=== PATIENT | female | born 1980 | race Caucasian/White ===

== ENCOUNTER → 2019-03-20 | Outpatient (REF) | payer BC, OTHER ==
[~2019-03-20] MED LIST: IBUP1TAB7 PO; MAPA500T2 PO; PERC5TAB12 PO; PRENTAB7 PO
== END ==
LOC: M LAB REF 13:25
PROVIDERS: ATTEND Advanced Practice Midwife
DX: Z12.4 Encounter for screening for malignant neoplasm of cervix (principal)
CPT/HCPCS: 87624; G0123

== ENCOUNTER → 2019-03-23 | Outpatient (CLI) | payer BC ==
--- NOTE | 2019-03-23 15:43 | REP ---
Clinical: Amenorrhea . Technique: Transabdominal pelvic ultrasound followed by transvaginal examination for better evaluation of the endometrium and adnexa. Findings: Bladder is unremarkable and measures 6.7 x 5.5 x 6.7 cm . Normal anteverted uterus measures 6.2 x 3.5 x 4.3 cm . The endometrial complex measures 8.0 mm thickness. No discrete uterine or endometrial abnormalities are appreciated. Bilateral ovaries are normal in appearance. Right ovary measures 2.5 x 2.2 x 2.7 cm ; Left ovary measures 3.4 x 2.0 x 2.5 cm. No pelvic fluid or adnexal mass lesion. Impression: 1. Normal pelvic ultrasound Electronically Signed by Red Mckeon MD 03/23/2019 03:35 P
== END ==
LOC: M RAD 15:03
PROVIDERS: ATTEND Advanced Practice Midwife
DX: N91.1 Secondary amenorrhea (principal)

== ENCOUNTER → 2019-04-04 | Outpatient (CLI) | payer BC ==
[~2019-04-04] MED LIST changes: +CIPR-249 PO; +FLAG500T PO; +ONDA4TAB6 PO
[2019-04-04 08:51] LABS: HEMOGLOBIN 13.4 g/dl (12.0-15.5); MEAN CORPUSCULAR HEMOGLOBIN 28.1 pg (27.0-33.0); MEAN CORPUSCULAR HGB CONC 31.2 g/dl (32.0-36.5); MEAN CORPUSCULAR VOLUME 90.1 fl (80.0-96.0); PLATELET COUNT, AUTOMATED 332 10^3/uL (150-450); RED BLOOD COUNT 4.77 10^6/uL (4.00-5.40); WHITE BLOOD COUNT 7.1 10^3/uL (4.0-10.0)
[2019-04-04 09:20] LABS: FREE T4 0.65 NG/DL (0.76-1.46); THYROID STIMULATING HORMONE 1.55 uIU/ML (0.358-3.740)
[2019-04-04 09:22] LABS: PROLACTIN 5.1 NG/ML
[2019-04-12 10:10] LABS: DEHYDROEPIANDROSTERONE SULFATE 52.3 ug/dL (57.3-279.2); INSULIN LEVEL 19.6 uIU/mL (2.6-24.9); TESTOSTERONE %FREE+WEAKLY BOUN 22.8 % (3.0-18.0); TESTOSTERONE FREE+WEAKLY BOUND 6.4 ng/dL (0.0-9.5); TESTOSTERONE TOTAL 28 ng/dL (8-48)
== END ==
LOC: M LAB 07:53
PROVIDERS: ATTEND Advanced Practice Midwife
DX: N91.1 Secondary amenorrhea (principal)

== ENCOUNTER 2019-04-10 04:55 | Emergency (ER) | payer BC ==
[~2019-04-10] VITALS: Ht 154.9 cm; Wt 90.9 kg
[~2019-04-10 04:55] MED LIST changes: -CIPR-249 PO; -FLAG500T PO; -ONDA4TAB6 PO
[2019-04-10 05:54] LABS: BASO % 0.3 % (0.0-1.0); EOS # 0.3 10^3/uL (0.0-0.50); EOS % 2.3 % (0.0-3.0); HEMATOCRIT 42.1 % (36.0-47.0); HEMOGLOBIN 13.9 g/dl (12.0-15.5); LYMPH # 2.5 10^3/uL (1.5-4.5); LYMPH % 23.2 % (24.0-44.0); MEAN CORPUSCULAR HEMOGLOBIN 28.8 pg (27.0-33.0); MEAN CORPUSCULAR VOLUME 87.3 fl (80.0-96.0); MONO % 9.1 % (0.0-5.0); NEUTROPHILS % 64.7 % (36.0-66.0); PLATELET COUNT, AUTOMATED 330 10^3/uL (150-450); RED BLOOD COUNT 4.82 10^6/uL (4.00-5.40); WHITE BLOOD COUNT 10.9 10^3/uL (4.0-10.0)
[2019-04-10 06:15] LABS: INR 0.93; PROTHROMBIN TIME 12.2 SECONDS (11.8-14.0)
[2019-04-10] MEDS ORDERED: NS 1,000 ML IV ONE (06:15)
[2019-04-10 06:17] LABS: ALT/SGPT 55 U/L (12-78); BILIRUBIN,DIRECT < 0.1 MG/DL (0.0-0.2); BILIRUBIN,TOTAL 0.3 MG/DL (0.2-1.0); LIPASE 137 U/L (73-393); TOTAL PROTEIN 7.6 GM/DL (6.4-8.2)
[2019-04-10] MEDS ORDERED: ISOVUE-370 76% 100ML VIAL (Q9967) As Ordered ONE (06:28)
--- NOTE | 2019-04-10 09:04 | REPVR ---
EXAM: CT Abdomen and Pelvis With Contrast EXAM DATE/TIME: 04/10/2019 6:35 AM CLINICAL HISTORY: 38 years old, female; Abdominal pain; Localized; Left lower quadrant (llq); Additional info: Llq pain, hematochezia TECHNIQUE: Imaging protocol: Axial computed tomography images of the abdomen and pelvis with intravenous contrast. Coronal and sagittal reformatted images were created and reviewed. Radiation optimization: All CT scans at this facility use at least one of these dose optimization techniques: automated exposure control; mA and/or kV adjustment per patient size (includes targeted exams where dose is matched to clinical indication); or iterative reconstruction. Contrast material: ISOVUE 370; Contrast volume: 100 ml; Contrast route: IV; COMPARISON: US PELVIC NON-OB COMPLETE 03/23/2019 3:10 PM FINDINGS: Lungs: The visualized lung bases are essentially clear. Liver: The liver is fatty in density. It appears otherwise unremarkable. Gallbladder and bile ducts: Cholecystectomy clips are present. Pancreas: Normal. No ductal dilation. Spleen: Normal. No splenomegaly. Adrenals: Normal. No mass. Kidneys and ureters: Normal. No hydronephrosis. Stomach and bowel: There is moderate colonic wall thickening extending from the splenic flexure through the mid sigmoid colon, indicating a nonspecific colitis. There is no pneumatosis. The large bowel is otherwise grossly unremarkable in appearance. The unopacified small bowel is not significantly distended to suggest obstruction. Appendix: The appendix appears normal. Intraperitoneal space: Normal. No free air. No significant fluid collection. Vasculature: Normal. No abdominal aortic aneurysm. Lymph nodes: Normal. No enlarged lymph nodes. Bladder: Unremarkable as visualized. Reproductive: No gross adnexal abnormality is apparent, but ultrasound would be more appropriate in this regard. Bones/joints: No acute fracture. No dislocation. Soft tissues: Unremarkable. IMPRESSION: 1. Nonspecific left-sided colitis. 2. Fatty liver. Electronically signed by: Leopoldo Vasquez On 04/10/2019 09:04:40 AM
[2019-04-10] MEDS ORDERED: ONDA4TAB6 PO (09:28)
[2019-04-10 09:44] VITALS: BP 144/87
[2019-04-10] MEDS ORDERED: CIPR-249 PO (11:25)
[2019-04-10] MEDS ORDERED: FLAG500T PO (11:25)
== END 2019-04-10 09:47 | disposition home or self-care (01) ==
LOC: M ED 04:55
DX: K51.50 Left sided colitis without complications (principal); K76.0 Fatty (change of) liver, not elsewhere classified; R11.0 Nausea; J30.2 Other seasonal allergic rhinitis; Z88.2 Allergy status to sulfonamides
CPT/HCPCS: 74177; 80047; 80076; 81001; 83690; 84702; 85025; 85610; 87507; 93041; 99285; Q9967

== ENCOUNTER → 2019-04-16 | Outpatient (REF) | payer BC ==
[~2019-04-16] MED LIST changes: +CIPR-249 PO; +FLAG500T PO; +ONDA4TAB6 PO
== END ==
LOC: M LAB REF 16:42
PROVIDERS: ATTEND Internal Medicine
DX: K52.9 Noninfective gastroenteritis and colitis, unspecified (principal)

== ENCOUNTER → 2019-04-22 | Outpatient (CLI) | payer BC | LOC: M LAB 13:14 | PROVIDERS: ATTEND Advanced Practice Midwife | DX: N91.1 Secondary amenorrhea (principal) ==

== ENCOUNTER 2019-08-03 06:39 | Day surgery (SDC) | payer BC ==
[~2019-08-03] VITALS: Ht 154.9 cm; Wt 89.4 kg
[~2019-08-03 06:39] MED LIST changes: +NS 1,000 ML IV ONE; +PROP60TA14 PO
[2019-08-03] MEDS ORDERED: LIDOCAINE 2% INJ 100 MG/5 ML SDV (FOR ANES.) As Ordered ONE (06:58)
[2019-08-03] MEDS ORDERED: PROPOFOL 200 MG/20 ML VIAL As Ordered ONE ×2 (06:58→07:42)
--- NOTE | 2019-08-03 07:54 | ROOR ---
Patient Name: Nkiia Oviedo Procedure Date: 08/03/2019 7:35 AM Date of : 1980 Age: 38 Room: OP02 Gender: Female Note Status: Finalized Procedure: Colonoscopy Indications: Abnormal CT of the GI tract, Follow-up of acute ischemic colitis Providers: Wellington WILKINS MD Referring MD: Nesha MATIAS MD Requesting Provider: Medicines: Monitored Anesthesia Care Complications: No immediate complications. Procedure: Pre-Anesthesia Assessment: - The heart rate, respiratory rate, oxygen saturations, blood pressure, adequacy of pulmonary ventilation, and response to care were monitored throughout the procedure. The Colonoscope was introduced through the anus and advanced to 10 cm into the ileum. The colonoscopy was performed without difficulty. The patient tolerated the procedure well. The quality of the bowel preparation was good. Findings: The perianal and digital rectal examinations were normal. The terminal ileum appeared normal. The colon appeared normal. The colon (entire examined portion) was mildly redundant. Impression: - The examined portion of the ileum was normal. - The entire examined colon is normal. - No specimens collected. Recommendation: - Continue present medications. - Miralax 1 capful (17 grams) in 8 ounces of water PO daily indefinitely. Wellington Wilkins MD Wellington WILKINS MD 08/03/2019 7:54:05 AM Electronically signed by Wellington WILKINS MD Number of Addenda: 0 Note Initiated On: 08/03/2019 7:35 AM Estimated Blood Loss: Estimated blood loss: none.
[2019-08-03 08:10] VITALS: BP 121/74
== END 2019-08-03 08:15 | disposition home or self-care (01) ==
LOC: M OPP 06:39
PROVIDERS: ATTEND Internal Medicine Gastroenterology
DX: K55.039 Acute (reversible) ischemia of large intestine, extent unspecified (principal); Q43.8 Other specified congenital malformations of intestine; K21.9 Gastro-esophageal reflux disease without esophagitis; R93.3 Abnormal findings on diagnostic imaging of other parts of digestive tract; F17.210 Nicotine dependence, cigarettes, uncomplicated; Z79.899 Other long term (current) drug therapy; Z88.2 Allergy status to sulfonamides; Z88.8 Allergy status to other drugs, medicaments and biological substances; Z80.0 Family history of malignant neoplasm of digestive organs; Z80.6 Family history of leukemia; Z87.19 Personal history of other diseases of the digestive system; Z91.89 Other specified personal risk factors, not elsewhere classified

== ENCOUNTER → 2019-12-07 | Outpatient (REF) | payer BC ==
[~2019-12-07] MED LIST changes: -NS 1,000 ML IV ONE
[2019-12-07 13:22] LABS: HEMOGLOBIN 13.5 g/dl (12.0-15.5); MEAN CORPUSCULAR HGB CONC 31.4 g/dl (32.0-36.5); PLATELET COUNT, AUTOMATED 363 10^3/uL (150-450); RED BLOOD COUNT 4.83 10^6/uL (4.00-5.40); WHITE BLOOD COUNT 9.9 10^3/uL (4.0-10.0)
[2019-12-07 14:14] LABS: HEPATITIS B SURFACE ANTIGEN NEGATIVE (NEGATIVE); HEPATITIS C VIRUS ABY INDEX < 0.0 INDEX (<0.8); HIV 1&2 SCREEN CENTAUR NEGATIVE (NEGATIVE); RUBELLA IgG QUALITATIVE IMMUNE (IMMUNE)
[2019-12-07 15:03] LABS: CHLAMYDIA DNA AMPLIFICATION NEGATIVE (NEGATIVE); GC DNA AMPLIFICATION NEGATIVE (NEGATIVE)
== END ==
LOC: M PLALAB 10:16
PROVIDERS: ATTEND Advanced Practice Midwife
DX: O34.219 Maternal care for unspecified type scar from previous cesarean delivery (principal)

== ENCOUNTER → 2020-02-06 | Outpatient (CLI) | payer BC ==
--- NOTE | 2020-02-06 17:56 | REP ---
OBSTETRIC SONOGRAPHY: HISTORY: Supervision of for anatomy. FINDINGS: Scanning through the gravid uterus demonstrates a viable single intrauterine gestation in a variable lie. motion is observed and heart rate is recorded at 144 beats per minute. A posterior placenta is seen grade 1 without evidence of previa or abruption. Amniotic fluid is subjectively normal. Closed cervical length is measured transabdominally at 4.0 cm. No extrauterine abnormalities observed. Exam quality was inhibited some degree by early gestational age and maternal body habitus. No anomaly is seen. Facial profile is observed but nose and lips are less than optimally seen. Four-chamber heart view is less than optimally visualized. Abdominal wall cord insertion and spine are less than optimally seen. The following additional anatomic structures are identified and felt to be unremarkable: cranium, choroid plexus, cavum, cerebellum and posterior fossa, nuchal fold, left ventricular and right ventricular outflow tract views, diaphragm, left-sided stomach, three-vessel cord, kidneys and bladder, upper and lower extremities. BIOMETRY CHART: BPD 4.0 cm = 18 weeks 1 day Head circumference 15.7 cm = 18 weeks 4 days Abdominal circumference 14.1 cm = 19 weeks 3 days Femur length 3.0 cm = 19 weeks 1 day Humeral length 2.9 cm = 19 weeks 3 days HC/AC ratio normal 1.11, cephalic index 0.68 (0.70-0.86, estimated weight 279 grams, 0 pounds 9 ounces, 65th percentile for 18 weeks 5 days. IMPRESSION: Viable single intrauterine gestation at 18 weeks 5 days by today's composite criteria. DELBERT by today's sonography, July 04, 2020. anatomic survey is less than complete as above.
== END ==
LOC: M WHC 08:54
PROVIDERS: ATTEND Advanced Practice Midwife
DX: O09.529 Supervision of elderly multigravida, unspecified trimester (principal); Z3A.18 18 weeks gestation of pregnancy

== ENCOUNTER → 2020-03-07 | Outpatient (CLI) | payer BC ==
--- NOTE | 2020-03-10 07:47 | REP ---
Clinical: Anatomical evaluation. Comparison: 02/06/2020 . Findings: Examination demonstrates a single live intrauterine in cephalic presentation. motion is identified by technologist. Placenta is noted posterior and grade I without evidence for placenta previa or abruption. Amniotic fluid volume is normal. Cervix measures 3.3 cm in length and appears closed. No evidence for nuchal cord. Gestational age by first US 23 weeks 0 days with DELBERT 07/04/2020 . Gestational age by current measurements 23 weeks 0 days with DELBERT 07/04/2020 . FHR equals 147 beats per minute. Estimated weight 665 grams ( 83rd percentile). Anatomical assessment demonstrates normal structures including facial features, four-chamber heart, cord insertion, and spine. Impression: Single live intrauterine in cephalic presentation demonstrating appropriate interval growth. In conjunction with prior examination anatomical assessment is complete and normal. No gross abnormalities are identified.
== END ==
LOC: M WHC 12:58
PROVIDERS: ATTEND Obstetrics & Gynecology
DX: O34.219 Maternal care for unspecified type scar from previous cesarean delivery (principal)

== ENCOUNTER → 2020-04-02 | Outpatient (CLI) | payer BC ==
[~2020-04-02] MED LIST changes: +DOCU100C16 PO; +IBUP80TA PO; +PERCOCET PO; +PREN200C PO; +ZOLO50TA PO
[2020-04-02 13:22] LABS: HEMATOCRIT 35.9 % (36.0-47.0); HEMOGLOBIN 11.3 g/dl (12.0-15.5); MEAN CORPUSCULAR HEMOGLOBIN 28.8 pg (27.0-33.0); MEAN CORPUSCULAR HGB CONC 31.5 g/dl (32.0-36.5); MEAN CORPUSCULAR VOLUME 91.6 fl (80.0-96.0); PLATELET COUNT, AUTOMATED 341 10^3/uL (150-450); RED BLOOD COUNT 3.92 10^6/uL (4.00-5.40); WHITE BLOOD COUNT 9.5 10^3/uL (4.0-10.0)
== END ==
LOC: M PLALAB 08:43
PROVIDERS: ATTEND Obstetrics & Gynecology
DX: O34.219 Maternal care for unspecified type scar from previous cesarean delivery (principal); Z3A.00 Weeks of gestation of pregnancy not specified

== ENCOUNTER 2020-04-04 22:31 | Outpatient (CLI) | payer BC ==
[~2020-04-04] VITALS: Ht 154.9 cm; Wt 90.3 kg
[~2020-04-04 22:31] MED LIST changes: -DOCU100C16 PO; -IBUP80TA PO; -PERCOCET PO; -PREN200C PO; -ZOLO50TA PO
[2020-04-04 22:47] VITALS: BP 139/85
[2020-04-04 23:09] VITALS: BP 143/85
--- NOTE | 2020-04-04 23:22 | IPNPDOC ---
Text Note Date of Service The patient was seen on 04/04/20. NOTE Outpatient 39yo G [id number] DELBERT 07/04/2020. Presents @ 27 wks with complaints of slipping and falling on hands and knees. No abdominal injury reported. Denies LOF, bleeding. States decreased movement. Reports L lateral abdominal discomfort. Also reports dull frontal headache. Borderline elevated BP No apparent distress Fetus very active, difficult to trace. Mild uterine irritability Preeclampsia workup, KB ordered. BPP and sono for placental status Bhavana Mcleod CNM Apr 04, 2020 23:22
[2020-04-04 23:57] LABS: CREATININE,RANDOM URINE 50.1 MG/DL; TOTAL PROTEIN,RANDOM URINE 12.5 MG/DL (0.0-12.0)
[2020-04-05 00:07] LABS: HEMATOCRIT 33.4 % (36.0-47.0); HEMOGLOBIN 10.6 g/dl (12.0-15.5); MEAN CORPUSCULAR HEMOGLOBIN 29.3 pg (27.0-33.0); MEAN CORPUSCULAR HGB CONC 31.7 g/dl (32.0-36.5); MEAN CORPUSCULAR VOLUME 92.3 fl (80.0-96.0); PLATELET COUNT, AUTOMATED 296 10^3/uL (150-450); RED BLOOD COUNT 3.62 10^6/uL (4.00-5.40); WHITE BLOOD COUNT 11.9 10^3/uL (4.0-10.0)
[2020-04-05 00:27] LABS: ALT/SGPT 12 U/L (12-78); CREATININE FOR GFR 0.49 MG/DL (0.55-1.30); GLOMERULAR FILTRATION RATE > 60.0 (>60); LDH LACTATE DEHYDROGENASE 142 U/L (84-246)
--- NOTE | 2020-04-05 00:37 | REPVR ---
PROCEDURE INFORMATION: Exam: US Biophysical Profile Without Non-Stress Test Exam date and time: 04/05/2020 12:27 AM Age: 39 years old Clinical indication: Injury or trauma; Fall; ; Additional info: Post fall. Check placenta TECHNIQUE: Imaging protocol: US biophysical profile without non-stress testing. COMPARISON: US OBS FOLLOW UP OR REPEAT 03/07/2020 1:15 PM FINDINGS: Gestation: Single intrauterine fetus. Heart rate: heartbeat of 140 bpm. Presentation: Breech presentation. Placenta: Posterior placenta. Amniotic fluid index: The PABLO is 14.9 cm. BIOPHYSICAL PROFILE: Breathin/2 Gross body movements: 2/2 tone: 2/2 Qualitative amniotic fluid: 2/2 Biophysical Profile Score: 8/8 DOPPLER: Umbilical artery Doppler: Cord S/D ratio is 2.76. MATERNAL ANATOMY: Cervix: The cervix measures 3.2 cm. IMPRESSION: 1. Single live intrauterine fetus in breech presentation. 2. Normal PABLO of 14.9 cm. 2. Normal biophysical profile score of 8/8. Electronically signed by: Jg Pablo On 04/05/2020 00:37:07 AM
[2020-04-05 01:40] LABS: APPEARANCE, URINE CLEAR (CLEAR); BACTERIA, URINE AUTO NEGATIVE (NEGATIVE); BILIRUBIN, URINE AUTO NEGATIVE (NEGATIVE); BLOOD, URINE BLOOD NEGATIVE (NEGATIVE); COLOR, URINE YELLOW (YELLOW); GLUCOSE, URINE (UA) AUTO NEGATIVE (NEGATIVE); KETONE, URINE AUTO NEGATIVE (NEGATIVE); LEUKOCYTE ESTERASE, URINE AUTO NEGATIVE (NEGATIVE); NITRITE, URINE AUTO NEGATIVE (NEGATIVE); PROTEIN, URINE AUTO NEGATIVE (NEGATIVE); RBC, URINE AUTO 0 /HPF (0-3); SQUAMOUS EPITHELIAL CELL UR AU 0 /HPF (0-6); UROBILINOGEN, URINE AUTO 0.2 mg/dL (0.0-2.0); WBC, URINE AUTO 0 /HPF (0-3)
--- NOTE | 2020-04-05 01:43 | IPNPDOC ---
Text Note Date of Service The patient was seen on 04/05/20. NOTE Outpatient CBC, PreE panel WNL. KB negative. Urine ratio 0.25 BPP /8. Pt denies bleeding, cramping, LOF Reports good movement. BP stable Discharge home. Routine precautions. Keep next appt. VS,Fishbone, I+O VS, Fishbone, I+O Laboratory Tests 04/04/20 23:54 Bhavana Mcleod CNM Apr 05, 2020 01:43
[2020-04-05 07:50] LABS: BILIRUBIN,TOTAL < 0.1 MG/DL (0.2-1.0)
[2020-06-13] MEDS ORDERED: PREN200C PO (07:55)
[2020-06-13] MEDS ORDERED: ZOLO50TA PO (07:55)
== END 2020-04-05 01:45 | disposition home or self-care (01) ==
LOC: M LDO 22:31
PROVIDERS: ATTEND Advanced Practice Midwife
DX: O36.8120 Decreased fetal movements, second trimester, not applicable or unspecified (principal); W01.0XXA Fall on same level from slipping, tripping and stumbling without subsequent striking against object, initial encounter; Z3A.27 27 weeks gestation of pregnancy
CPT/HCPCS: 36415; 76815; 76819; 76820; 81001; 82247; 82565; 82570; 83615; 84156; 84450; 84460; 84550; 85027; 85460; G0378; G0463

== ENCOUNTER → 2020-06-11 | Outpatient (REF) | payer BC ==
[~2020-06-11] MED LIST changes: +DOCU100C16 PO; +IBUP80TA PO; +PERCOCET PO; +PREN200C PO; +ZOLO50TA PO
== END ==
LOC: M SFHCWAGY 10:14
PROVIDERS: ATTEND Obstetrics & Gynecology
DX: Z34.83 Encounter for supervision of other normal pregnancy, third trimester (principal); Z3A.00 Weeks of gestation of pregnancy not specified

== ENCOUNTER → 2020-06-24 | Outpatient (CLI) | payer BC | LOC: M LABSMTC 09:37 | PROVIDERS: ATTEND Anesthesiology | DX: Z01.812 Encounter for preprocedural laboratory examination (principal); Z20.828 Contact with and (suspected) exposure to other viral communicable diseases | CPT/HCPCS: C9803; U0003 ==

== ENCOUNTER 2020-06-27 05:19 | Inpatient (IN) | payer BC ==
[~2020-06-27] VITALS: Ht 154.9 cm; Wt 89.9 kg
[2020-06-27] VITALS (8 sets, daily range): BP systolic 11–131; BP diastolic 53–78
[~2020-06-27 05:19] MED LIST changes: -DOCU100C16 PO; -IBUP80TA PO; -PERCOCET PO
[2020-06-27 06:12] LABS: HEMATOCRIT 34.9 % (36.0-47.0); HEMOGLOBIN 11.2 g/dl (12.0-15.5); MEAN CORPUSCULAR HEMOGLOBIN 28.1 pg (27.0-33.0); MEAN CORPUSCULAR HGB CONC 32.1 g/dl (32.0-36.5); MEAN CORPUSCULAR VOLUME 87.5 fl (80.0-96.0); PLATELET COUNT, AUTOMATED 296 10^3/uL (150-450); RED BLOOD COUNT 3.99 10^6/uL (4.00-5.40); WHITE BLOOD COUNT 8.7 10^3/uL (4.0-10.0)
[2020-06-27] MEDS ORDERED: LR 1,000 ML IV ONE (06:30)
[2020-06-27] MEDS ORDERED: ceFAZolin SOD 2 GM in IV 1 EA IV ONE (06:30)
[2020-06-27] MEDS ORDERED: LR 1,000 ML IV SCH ×2 (06:30→08:57)
[2020-06-27] MEDS ORDERED: BICITRA 30ML SOLN UDC PO ONE (06:45)
[2020-06-27] MEDS ORDERED: NALOXONE INJ 0.4MG/1ML VIAL (J2310 PER 1MG) IV PRN ×2 (07:36)
[2020-06-27] MEDS ORDERED: ONDANSETRON 4MG/2ML VIAL IV PRN ×3 (07:36→09:45)
[2020-06-27] MEDS ORDERED: NALBUPHINE HCL 10 MG/ML AMP (J2300) IV PRN (07:36)
[2020-06-27] MEDS ORDERED: METOCLOPRAMIDE INJ 10MG/2ML VIAL (J2765 PER 1) IV PRN ×2 (07:36→09:45)
[2020-06-27] MEDS ORDERED: MORPHINE PRES-FREE INJ 10 MG/10 ML VIAL (J2274) As Ordered ONE (07:49)
[2020-06-27] MEDS ORDERED: OXYTOCIN INJ 10 UNITS/ML VIAL (J2590) As Ordered ONE (07:50)
[2020-06-27] MEDS ORDERED: ePHEDrine SULFATE 25 MG/5 ML(5MG/ML) SYRINGE As Ordered ONE (07:50)
[2020-06-27] MEDS ORDERED: ONDANSETRON 4MG/2ML VIAL As Ordered ONE (07:50)
[2020-06-27] MEDS ORDERED: KETOROLAC 60MG 2ML VIAL As Ordered ONE (08:44)
[2020-06-27] MEDS ORDERED: ACETAMINOPHEN 1000MG 100ML IV BTL (OFIRMEV) (J0131 PER 10MG) As Ordered ONE (08:45)
[2020-06-27] MEDS ORDERED: OXYTOCIN DRIP 30 UNITS in IV 1 EA IV SCH (08:57)
[2020-06-27] MEDS ORDERED: MOM 30ML SUSPENSION UDC PO PRN (09:00)
[2020-06-27] MEDS ORDERED: RHOGAM 300 MCG (1500 IU) INJ (J2790) IM SCH (09:00)
[2020-06-27] MEDS ORDERED: MEASLES,MUMPS,RUBELLA VACCINE INJ (MMR-II) (90707) SC SCH (09:00)
[2020-06-27] MEDS ORDERED: OXYTOCIN 30 UNITS IN 0.9% NaCl 500ML IV BAG (J2590) As Ordered ONE (09:28)
[2020-06-27] MEDS ORDERED: MEPERIDINE INJ 25 MG/ML VIAL (J2175) IV PRN (09:45)
[2020-06-27] MEDS ORDERED: fentaNYL 100 MCG/2 ML INJECTION (J3010) IV PRN (09:45)
[2020-06-27] MEDS ORDERED: PERCOCET 5MG/325MG TAB As Ordered ONE (10:06)
[2020-06-27] MEDS: PERCOCET 5MG/325MG TAB PO PRN (10:08)
[2020-06-27] MEDS: diphenhydrAMINE 50MG/ML VIAL (J1200) IV PRN ×4 (11:41→22:28)
[2020-06-27] MEDS: PRENATAL VITAMINS CHEWABLE TABLET PO SCH (14:07)
[2020-06-27] MEDS: DOCUSATE SODIUM 100 MG CAP PO SCH ×2 (14:07→21:44)
[2020-06-27] MEDS: KETOROLAC 30 MG/ML 1ML VIAL IV SCH ×2 (14:08→19:44)
--- NOTE | 2020-06-27 14:17 | ROOPDOC ---
[facility] Report Of Operation Report of Operation DATE OF PROCEDURE: 06/27/20 SURGEON: Stefania Downs M.D. BUSH REGENERATOR: Felisa Lopes CNM PROCEDURE: Repeat section PREOPERATIVE DIAGNOSIS: 1. History of prior section 2. Intrauterine at 39 weeks POSTOPERATIVE DIAGNOSIS: 1. History of prior section 2. Intrauterine at 39 weeks ANESTHESIA: Spinal ESTIMATED BLOOD LOSS: 800 mL URINE OUTPUT: 50 mL INTRAVENOUS FLUIDS: 1400 mL of lactated Ringer's solution PREOPERATIVE ANTIBIOTICS:. 2 g of Ancef OPERATIVE FINDINGS: Liveborn female , Apgars 8 and 9. Weight was 2800 g or 6 lbs. 3 oz. DESCRIPTION OF PROCEDURE: After informed consent was obtained and written consent was reviewed. The patient was brought to the operating room where spinal anesthesia was placed. She was then placed in the supine position with a left lateral tilt. Contreras catheter was placed and to gravity. Patient was then prepped and draped in the normal sterile fashion. A timeout operating room was performed identifying the patient, procedure be performed as well as drug allergies. Anesthesia was tested and deemed to be adequate. Pfannenstiel skin incision was made and this was carried down to the underlying rectus fascia. The fascia was then scored and this incision was extended bilaterally. The fascia was then dissected off the underlying rectus muscle superiorly and inferiorly. The rectus muscles were then in the midline. The peritoneum is then entered. Ve sicouterine peritoneum was then tented and excised and a bladder flap was created. Mobius retractor was then placed. Next, a curvilinear incision was then made in the lower uterine segment. Amniotomy was performed, productive, clear fluid. The head was brought to the level of the incision atraumatically and delivered along the shoulders and corpus. The cord was clamped x2. The was brought over to the warmer with a good cry. Placenta was drained and delivered grossly intact. The uterus was cleared of all clots and debris. The uterine incision was then closed using 0 Vicryl in a running locking fashion followed second layer for imbrication in a running, nonlocking fashion. The abdomen suctioned. Surgical sites reinspected and noted be hemostatic. The retractor was then removed. The anterior peritoneum was then reapproximated with 3-0 Vicryl. The rectus muscles were reapproximated 3-0 Vicryl. The fascia was then closed using 0 Vicryl in a running nonlocking fashion. The subcutaneous tissues was then irrigated and suctioned. Subcutaneous tissue was reapproximated using 3-0 Vicryl. Several subdermal stitch is placed using 3-0 Vicryl and the skin was closed with 4-0 Monocryl and subcuticular fashion. This incision was then cleaned and dried and was dressed. The patient was then taken to recovery in stable condition. All counts were correct. My surgical garment inspector Felisa Lopes played in an essential role during the operation. She assisted with tissue identification retraction, delivery of the , as well as wound closure. STEFANIA DOWNS MD. Jun 27, 2020 14:17
[2020-06-28] MEDS: KETOROLAC 30 MG/ML 1ML VIAL IV SCH (01:53)
[2020-06-28 02:00] VITALS: BP 119/69
[2020-06-28] MEDS: diphenhydrAMINE 50MG/ML VIAL (J1200) IV PRN (02:28)
[2020-06-28 06:00] VITALS: BP 112/53
--- NOTE | 2020-06-28 07:19 | IPNPDOC ---
Text Note Date of Service The patient was seen on 06/28/20. NOTE Inpatient PO Day 1 Denies any concerns this morning. States she is moving around well on her own, voiding appropriately, passing flatus. VSS, afebrile, normotensive. Pain managed with Toradol. Ibuprofen, Tylenol, and Percocet available if needed. is going well throughout the night, denies nipple soreness/tenderness. Fundus firm at umbilicus, small amount of rubra lochia on pad, no odor. Dressing dry and intact, old drainage along top of dressing. Anticipate discharge tomorrow morning. VS,Fishbone, I+O VS, Fishbone, I+O Vital Signs Date Time Temp Pulse Resp B/P (MAP) Pulse Ox O2 Delivery O2 Flow Rate FiO2 06/28/20 06:00 98.1 95 18 112/53 (72) 97 Room Air I&O- Last 24 Hours up to 6 AM 06/28/20 06:00 Intake Total 3280 ml Output Total 1650 ml Balance 1630 ml Bhavana Mcleod CNM Jun 28, 2020 07:18
[2020-06-28 07:31] LABS: HEMATOCRIT 25.9 % (36.0-47.0); MEAN CORPUSCULAR HEMOGLOBIN 28.6 pg (27.0-33.0); MEAN CORPUSCULAR VOLUME 89.3 fl (80.0-96.0); PLATELET COUNT, AUTOMATED 221 10^3/uL (150-450); WHITE BLOOD COUNT 13.3 10^3/uL (4.0-10.0)
[2020-06-28 07:39] LABS: HEMOGLOBIN 8.3 g/dl (12.0-15.5)
[2020-06-28] MEDS: SERTRALINE HCL 50 MG TAB PO SCH (08:24)
[2020-06-28] MEDS: DOCUSATE SODIUM 100 MG CAP PO SCH ×2 (08:24→19:53)
[2020-06-28] MEDS: PERCOCET 5MG/325MG TAB PO PRN ×3 (08:24→19:53)
[2020-06-28] MEDS: PRENATAL VITAMINS CHEWABLE TABLET PO SCH (08:24)
[2020-06-28] MEDS ORDERED: diphenhydrAMINE 50MG/ML VIAL (J1200) IV PRN (08:30)
[2020-06-28] MEDS ORDERED: INFLUENZA QUADRIVALENT PF VACCINE 0.5ML SYRINGE IM ONE (09:00)
[2020-06-28 09:51] VITALS: BP 103/56
[2020-06-28] MEDS: IBUPROFEN 800 MG TAB PO SCH ×2 (10:17→17:20)
[2020-06-28] MEDS ORDERED: hydrOXYzine 25 MG TAB PO ONE (11:00)
[2020-06-28 14:25] VITALS: BP 114/60
[2020-06-28 17:55] VITALS: BP 112/73
[2020-06-28 21:46] VITALS: BP 124/67
[2020-06-29] MEDS: PERCOCET 5MG/325MG TAB PO PRN ×2 (00:57→10:10)
[2020-06-29] MEDS: IBUPROFEN 800 MG TAB PO SCH ×2 (00:57→09:49)
[2020-06-29 01:06] VITALS: BP 134/67
[2020-06-29 05:40] VITALS: BP 117/60
[2020-06-29] MEDS ORDERED: INFLUENZA QUADRIVALENT PF VACCINE 0.5ML SYRINGE IM ONE (09:00)
[2020-06-29] MEDS: PRENATAL VITAMINS CHEWABLE TABLET PO SCH (09:49)
[2020-06-29] MEDS: DOCUSATE SODIUM 100 MG CAP PO SCH (09:49)
[2020-06-29] MEDS: SERTRALINE HCL 50 MG TAB PO SCH (10:06)
--- NOTE | 2020-06-29 11:48 | DS.PDOC ---
Discharge Summary General Date of Admission Jun 27, 2020 at 05:19 Date of Discharge 06/29/2020 Discharge Summary PROCEDURES PERFORMED DURING STAY: RLTCS ADMITTING DIAGNOSES: Term , history of prior low transverse section DISCHARGE DIAGNOSES: Same COMPLICATIONS/CHIEF COMPLAINT: Previous Section. HOSPITAL COURSE: Patient underwent an uncomplicated RLTCS. Postoperative course uncomplicated. Pt met all d/c criteria on POD#2 DISCHARGE MEDICATIONS: Percocet, Motrin, Colace PHYSICAL EXAMINATION ON DISCHARGE: VITAL SIGNS: Please see below. GENERAL: Alert and oriented x 4, resting comfortably CARDIOVASCULAR EXAMINATION: Regular rate, rhythm. No murmurs,gallops,rubs RESPIRATORY EXAMINATION:Clear to auscultation bilaterally, no wheezes, crackles, rales, ronchi ABDOMINAL EXAMINATION: soft, nontender, nondistended. Incision clean, dry, and intact. No surrounding erythema or induration EXTREMITIES: No clubbing, cyanosis, edema ACTIVITY: As tolerated. DIET: Regular DISPOSITION: Home ITEMS TO FOLLOWUP ON ON OUTPATIENT: Incision , postoperative checkup in 1-2 weeks DISCHARGE CONDITION: Good, Stable Vital Signs/I&Os Vital Signs Date Time Temp Pulse Resp B/P (MAP) Pulse Ox O2 Delivery O2 Flow Rate FiO2 06/29/20 11:03 16 06/29/20 05:40 97.6 86 117/60 (79) 98 Room Air I&O- Last 24 Hours up to 6 AM 06/29/20 06:00 Intake Total 1200 ml Balance 1200 ml Laboratory Data Labs 24H Laboratory Tests 06/28/20 07:11 Discharge Medications Scheduled Docosahexanoic Acid ( Dha) 200 Mg Capsule, 1 CAP PO DAILY, (Reported) Sertraline Hcl (Zoloft) 50 Mg Tablet, 50 MG PO DAILY, (Reported) Allergies Coded Allergies: sumatriptan (Verified Allergy, Severe, throat swelling, 07/19/19) Sulfa (Sulfonamide Antibiotics) (Verified Allergy, Unknown, 07/19/19) HAY FEVER (Verified Adverse Reaction, Intermediate, SEASONAL ALLERGIES, 07/19/19) KYM SHANKS DO Jun 29, 2020 11:47
[2020-06-29] MEDS ORDERED: IBUP80TA PO (12:06)
[2020-06-29] MEDS ORDERED: PERCOCET PO (12:06)
[2020-06-29] MEDS ORDERED: DOCU100C16 PO (12:06)
== END 2020-06-29 14:25 | disposition home or self-care (01) | DRG 540 ==
LOC: M LDI 05:19 → M OBS 10:30
PROVIDERS: ADMIT Obstetrics & Gynecology; ATTEND Obstetrics & Gynecology
PROC: 10D00Z1 Extraction of Products of Conception, Low, Open Approach (ICD-10-PCS; principal; 2020-06-27 07:30)
DX: O34.211 Maternal care for low transverse scar from previous cesarean delivery (principal); Z37.0 Single live birth; Z3A.39 39 weeks gestation of pregnancy; O09.523 Supervision of elderly multigravida, third trimester; Z88.2 Allergy status to sulfonamides; Z88.8 Allergy status to other drugs, medicaments and biological substances

== ENCOUNTER → 2020-08-01 | Outpatient (REF) | payer BC ==
[~2020-08-01] MED LIST changes: +DOCU100C16 PO; +IBUP80TA PO; +PERCOCET PO
== END ==
LOC: M SFHCWAGY 13:26
PROVIDERS: ATTEND Advanced Practice Midwife
DX: O34.211 Maternal care for low transverse scar from previous cesarean delivery (principal)

== ENCOUNTER → 2020-11-14 | Outpatient (REF) | payer OTHER, BC | LOC: M SFHCWAGY 13:18 | PROVIDERS: ATTEND Advanced Practice Midwife | DX: Z12.4 Encounter for screening for malignant neoplasm of cervix (principal); Z01.419 Encounter for gynecological examination (general) (routine) without abnormal findings ==

== ENCOUNTER → 2023-12-26 | Outpatient (REF) | payer BC ==
[~2023-12-26] MED LIST changes: +MIRE1IUD IU; +SAXE1INJ
== END ==
LOC: MERGE 17:09 → M SFHCWAGY 17:09
PROVIDERS: ATTEND Advanced Practice Midwife
DX: Z12.4 Encounter for screening for malignant neoplasm of cervix (principal)

== ENCOUNTER → 2024-02-01 | Outpatient (CLI) | payer BC | LOC: M WHC 16:07 | PROVIDERS: ATTEND Advanced Practice Midwife | DX: Z12.31 Encounter for screening mammogram for malignant neoplasm of breast (principal) ==

== ENCOUNTER → 2024-09-27 | Outpatient (CLI) | payer BC ==
[~2024-09-27] MED LIST changes: +ONDA-282 PO; -ONDA4TAB6 PO
[2024-09-27 19:22] LABS: BASO % 0.3 % (0.0-1.0); EOS # 0.1 10^3/uL (0.0-0.5); EOS % 1.6 % (0.0-3.0); HEMOGLOBIN 13.1 g/dl (12.0-15.5); LYMPH # 2.8 10^3/uL (1.5-5.0); LYMPH % 32.2 % (24.0-44.0); MEAN CORPUSCULAR HEMOGLOBIN 28.5 pg (27.0-33.0); MEAN CORPUSCULAR VOLUME 89.3 fl (80.0-96.0); MONO # 0.8 10^3/uL (0.0-0.8); MONO % 9.3 % (2.0-8.0); NEUTROPHILS # 4.9 10^3/uL (1.5-8.5); NEUTROPHILS % 56.4 % (36.0-66.0); PLATELET COUNT, AUTOMATED 348 10^3/uL (150-450); RED BLOOD COUNT 4.59 10^6/uL (4.00-5.40); WHITE BLOOD COUNT 8.8 10^3/uL (4.0-10.0)
[2024-09-27 19:29] LABS: ALKALINE PHOSPHATASE 72 U/L (35-104); ALT/SGPT 28 U/L (7.0-40); AST/SGOT 18 U/L (<34); BILIRUBIN,TOTAL 0.4 MG/DL (0.3-1.2); BLOOD UREA NITROGEN 11 MG/DL (9-23); CALCIUM LEVEL 9.6 MG/DL (8.5-10.1); CARBON DIOXIDE LEVEL 28 MMOL/L (20-31); CHLORIDE LEVEL 106 MMOL/L (98-107); GLOMERULAR FILTRATION RATE > 60.0 (>58); GLUCOSE, FASTING 95 MG/DL (60-100); POTASSIUM SERUM 4.3 MMOL/L (3.5-5.1); SODIUM LEVEL 140 MMOL/L (136-145); TOTAL PROTEIN 6.9 G/DL (5.7-8.2)
[2024-09-27 19:31] LABS: THYROID STIMULATING HORMONE 1.114 uIU/ML (0.55-4.78)
== END ==
LOC: M WUC 15:15
PROVIDERS: ATTEND Nurse Practitioner Psychiatric/Mental Health
DX: F90.2 Attention-deficit hyperactivity disorder, combined type (principal); F43.20 Adjustment disorder, unspecified

== ENCOUNTER → 2024-10-04 | Outpatient (CLI) | payer BC | LOC: M EKG 09:12 | PROVIDERS: ATTEND Nurse Practitioner Psychiatric/Mental Health | DX: F43.20 Adjustment disorder, unspecified (principal) ==

== ENCOUNTER → 2025-01-29 | Outpatient (REF) | payer BC ==
[2025-02-01 12:03] LABS: HPV APTIMA Not Detected (Not Detected)
== END ==
LOC: M SFHCWAGY 10:04
PROVIDERS: ATTEND Advanced Practice Midwife
DX: Z12.4 Encounter for screening for malignant neoplasm of cervix (principal)
CPT/HCPCS: 87624; G0123

== ENCOUNTER → 2025-06-12 | Outpatient (CLI) | payer BC | LOC: M WUC 11:59 | PROVIDERS: ATTEND Surgery | DX: E66.01 Morbid (severe) obesity due to excess calories (principal) ==

== ENCOUNTER → 2025-09-20 | Outpatient (REF) | LOC: M EMP 10:49 | PROVIDERS: ATTEND Family Medicine | DX: Z01.89 Encounter for other specified special examinations (principal) ==